=== PATIENT | male | born 1975 | race Caucasian/White ===

== ENCOUNTER 2020-01-13 14:21 | Observation (INO) | payer OTHER ==
--- NOTE | 2020-01-13 15:25 | PDOC ---
History of Present Illness - General Chief Complaint: Pain Stated Complaint: ABD PAIN Time Seen by Provider: 01/13/20 15:16 History Source: Patient Exam Limitations: No Limitations Past History - Travel History Traveled outside of the country in the last 30 days: No Close contact w/someone who was outside of country & ill: No - Medical History Allergies/Adverse Reactions: Allergies Allergy/AdvReac Type Severity Reaction Status Date / Time No Known Allergies Allergy Verified 12/31/14 17:47 Home Medications: Ambulatory Orders Ibuprofen [Motrin -] 600 mg PO QID PRN #20 tablet 12/31/14 - Psycho-Social/Smoking History Smoking History: Never smoked - Substance Abuse Hx (Audit-C & DAST Scrn) How often the patient has a drink containing alcohol: Never Score: In Men: 4 or > Positive; In Women: 3 or > Positive: 0 Screen Result (Pos requires Nsg. Audit-10AR): Negative Review of Systems - Review of Systems Able to Perform ROS?: Yes Comments:: 01/13/20 21:10 CONSTITUTIONAL: Absent: fever, chills, diaphoresis, generalized weakness, malaise, loss of appetite HEENT: Absent: rhinorrhea, nasal congestion, throat pain, throat swelling, difficulty swallowing, mouth swelling, ear pain, eye pain, visual Changes CARDIOVASCULAR: Absent: chest pain, loss of consciousness, palpitations, irregular heart rate, peripheral edema RESPIRATORY: Absent: cough, shortness of breath, dyspnea with exertion, orthopnea, wheezing, stridor, hemoptysis GASTROINTESTINAL: Present: Abdominal pain, nausea Absent: abdominal distension, vomiting, diarrhea, constipation, melena, hematochezia GENITOURINARY: Absent: dysuria, frequency, urgency, hesitancy, hematuria, flank pain, genital pain MUSCULOSKELETAL: Absent: myalgia, arthralgia, joint swelling SKIN: Absent: rash, itching, pallor HEMATOLOGIC/IMMUNOLOGIC: Absent: easy bleeding, easy bruising, lymphadenopathy, frequent infections ENDOCRINE: Absent: unexplained weight gain, unexplained weight loss, heat intolerance, cold intolerance NEUROLOGIC: Absent: headache, focal weakness or paresthesias, dizziness, unsteady gait, seizure, mental status changes, bladder or bowel incontinence PSYCHIATRIC: Absent: anxiety, depression, suicidal or homicidal ideation, hallucinations. Is the patient limited Lao proficient: No *Physical Exam - Vital Signs Last Vital Signs Temp Pulse Resp BP Pulse Ox 98.2 F 85 20 114/72 100 01/13/20 14:37 01/13/20 14:37 01/13/20 14:37 01/13/20 14:37 01/13/20 14:37 - Physical Exam 01/13/20 21:10 GENERAL: Well developed, well nourished. Awake and alert. No acute distress. HEENT: Normocephalic, atraumatic. PERRLA, EOMI. No conjunctival pallor. Sclera are non- icteric. Moist mucous membranes. Oropharynx is clear. NECK: Supple. Full ROM. No JVD. Carotid pulses 2+ and symmetric, without bruits. No thyromegaly. No lymphadenopathy. CARDIOVASCULAR: Regular rate and rhythm. No murmurs, rubs, or gallops. Distal pulses are 2+ and symmetric. PULMONARY: No evidence of respiratory distress. Lungs clear to auscultation bilaterally. No wheezing, rales or rhonchi. ABDOMINAL: Tenderness palpation of the right lower quadrant. Positive Rovsing sign. Soft. Non-distended. No rebound or guarding. No organomegaly. Normoactive bowel sounds. MUSCULOSKELETAL Normal range of motion at all joints. No bony deformities or tenderness. No CVA tenderness. EXTREMITIES: No cyanosis. No clubbing. No edema. No calf tenderness. SKIN: Warm and dry. Normal capillary refill. No rashes. No jaundice. NEUROLOGICAL: Alert, awake, appropriate. Cranial nerves 2-12 intact. No deficits to light touch and temperature in face, upper extremities and lower extremities. No motor deficits in the in face, upper extremities and lower extremities. Normoreflexic in the upper and lower extremities. Normal speech. Toes are down-going bilaterally. Gait is normal without ataxia. PSYCHIATRIC: Cooperative. Good eye contact. Appropriate mood and affect. ED Treatment Course - LABORATORY CBC & Chemistry Diagram: 01/13/20 16:30 01/13/20 16:30 Medical Decision Making - Medical Decision Making 01/13/20 21:11 Patient is a 44-year-old male no past medical history who presents to the ER for 2 days of right lower quadrant pain. He states that he tried eating toast last night however he had a lot of pain in his abdomen so he stopped eating. He also notes he felt like he had gas. He states that the pain is mostly in his right lower quadrant. He denies vomiting, diarrhea, constipation, urinary issues, chest pain, shortness of breath and difficulty breathing. Denies any past surgical history. A/P: Appendicitis On exam patient has exquisite right lower quadrant tenderness with positive Rovsing sign. Labs show leukocytosis to 22 with a left shift. Preop labs drawn, blood culture sent. CT as per imaging on-call shows acute appendicitis. Consulted with Dr. Ramos. States he will see the patient in the morning. Admit to medicine. Discharge - Discharge Information Problems reviewed: Yes Clinical Impression/Diagnosis: Appendicitis Qualifiers: Appendicitis type: acute appendicitis Acute appendicitis type: with localized peritonitis Appendicitis gangrene presence: unspecified whether gangrene present Appendicitis perforation presence: without perforation Appendicitis abscess presence: without abscess Qualified Code(s): K35.30 - Acute appendicitis with localized peritonitis, without perforation or gangrene Condition: Stable - Admission Yes - Follow up/Referral Referrals: Manjula Mcgee [Primary Care Provider] - - Patient Discharge Instructions - Post Discharge Activity
[2020-01-13] MEDS ORDERED: SODIUM CHLORIDE 1,000 ML IV STA ×2 (15:35→18:14)
[2020-01-13 17:03] LABS: PH,URINE 7.5 (5.0-8.0); URINE APPEARANCE CLEAR; URINE BILIRUBIN NEGATIVE (NEGATIVE); URINE COLOR YELLOW; URINE GLUCOSE (UA) NEGATIVE (NEGATIVE); URINE KETONE NEGATIVE (NEGATIVE); URINE LEUK ESTERASE NEGATIVE (NEGATIVE); URINE NITRITE NEGATIVE (NEGATIVE); URINE PROTEIN NEGATIVE (NEGATIVE); URINE UROBILINOGEN 0.2 mg/dL (0.2-1.0)
[2020-01-13 17:07] LABS: INR 1.07 (0.83-1.09); PROTHROMBIN TIME (PATIENT) 12.6 SEC (9.7-13.0)
[2020-01-13 17:23] LABS: BASO % 0.2 % (0-2.0); HEMATOCRIT 47.8 % (35.4-49); HEMOGLOBIN 15.9 GM/dL (11.7-16.9); LYMPH % 8.3 % (8-40); MCHC 33.3 g/dl (32.0-35.9); MEAN CELL VOLUME 87.1 fl (80-96); MEAN PLT VOLUME 9.3 fl (7.5-11.1); MONO % 6.8 % (3.8-10.2); NEUT % 84.7 % (42.8-82.8); PLATELET COUNT 249 K/MM3 (134-434); RBC 5.49 M/mm3 (4.00-5.60); RDW 13.9 % (11.9-15.9); WHITE BLOOD COUNT 22.5 K/mm3 (4.0-10.0)
[2020-01-13 17:46] LABS: ALBUMIN 3.7 g/dl (3.4-5.0); BILIRUBIN,TOTAL 1.9 mg/dL (0.2-1); BLOOD UREA NITROGEN 10.6 mg/dL (7-18); CALCIUM 8.6 mg/dL (8.5-10.1); CREATININE 1.1 mg/dL (0.55-1.3); POTASSIUM 3.9 mmol/L (3.5-5.1)
[2020-01-13 17:52] LABS: PLATELET ESTIMATE ADEQUATE
[2020-01-13] MEDS ORDERED: PIPERACILLIN/TAZOB 3.375 GM 3.375 GM in DEXTROSE 5%-WATER - 50 ML IVPB ONE (20:41)
[2020-01-13] MEDS ORDERED: PIPERACILLIN/TAZOB 3.375 GM 3.375 GM/50 ML BAG IVPB ONE (20:48)
[2020-01-13] MEDS ORDERED: ACETAMINOPHEN 325 MG TABLET (FP) PO PRN (21:28)
--- NOTE | 2020-01-13 21:31 | HP ---
CHIEF COMPLAINT: abdominal pain PCP: HISTORY OF PRESENT ILLNESS: Patient is a 44 y/o male with no past medical history who presents with two days of abdominal pain. States that it has been worsening. No acute onset. Denies nausea, vomiting, diarrhea, fever. Only endorses pain. Does not take any medications. No past hx of surgery. Talked to patient using Ukranian chief financial officer. ER course was notable for: (1) acute appendicitis (2) (3) Recent Travel: denies PAST MEDICAL HISTORY: none PAST SURGICAL HISTORY: none Social History: Smoking: quit " years ago" Alcohol: occasional Drugs: denies Allergies No Known Allergies Allergy (Verified 12/31/14 17:47) HOME MEDICATIONS: Home Medications Medication Instructions Recorded Ibuprofen [Motrin -] 600 mg PO QID PRN #20 tablet 12/31/14 REVIEW OF SYSTEMS CONSTITUTIONAL: Absent: fever, chills, diaphoresis, generalized weakness, malaise, loss of appetite, weight change HEENT: Absent: rhinorrhea, nasal congestion, throat pain, throat swelling, difficulty swallowing, mouth swelling, ear pain, eye pain, visual changes CARDIOVASCULAR: Absent: chest pain, syncope, palpitations, irregular heart rate, lightheadedness, peripheral edema RESPIRATORY: Absent: cough, shortness of breath, dyspnea with exertion, orthopnea, wheezing, stridor, hemoptysis GASTROINTESTINAL: abdominal pain, Absent: abdominal distension, nausea, vomiting, diarrhea, constipation, melena, hematochezia GENITOURINARY: Absent: dysuria, frequency, urgency, hesitancy, hematuria, flank pain, genital pain MUSCULOSKELETAL: Absent: myalgia, arthralgia, joint swelling, back pain, neck pain SKIN: Absent: rash, itching, pallor HEMATOLOGIC/IMMUNOLOGIC: Absent: easy bleeding, easy bruising, lymphadenopathy, frequent infections ENDOCRINE: Absent: unexplained weight gain, unexplained weight loss, heat intolerance, cold intolerance NEUROLOGIC: Absent: headache, focal weakness or paresthesias, dizziness, unsteady gait, seizure, mental status changes, bladder or bowel incontinence PSYCHIATRIC: Absent: anxiety, depression, suicidal or homicidal ideation, hallucinations. PHYSICAL EXAMINATION Vital Signs - 24 hr 01/13/20 01/13/20 14:37 18:46 Temperature 98.2 F Pulse Rate 85 Respiratory 20 Rate Blood Pressure 114/72 O2 Sat by Pulse 100 99 Oximetry (%) GENERAL: Awake, alert, and fully oriented, in no acute distress. HEAD: Normal with no signs of trauma. EYES: Pupils equal, round and reactive to light, extraocular movements intact EARS, NOSE, THROAT: Moist mucous membranes. NECK: Normal range of motion, supple without lymphadenopathy, JVD, or masses. LUNGS: Breath sounds equal, clear to auscultation bilaterally. No wheezes, and no crackles. No accessory muscle use. HEART: Regular rate and rhythm, normal S1 and S2 without murmur, rub or gallop. ABDOMEN: hypoactive bowel sounds, mild guarding to right quadrant deep palpation MUSCULOSKELETAL: Normal range of motion LOWER EXTREMITIES:No peripheral edema. SKIN: Warm, dry, normal turgor, no rashes or lesions noted, normal capillary refill. Laboratory Results - last 24 hr 01/13/20 01/13/20 01/13/20 16:30 16:30 16:30 WBC 22.5 H RBC 5.49 Hgb 15.9 Hct 47.8 MCV 87.1 MCH 29.0 MCHC 33.3 RDW 13.9 Plt Count 249 MPV 9.3 Absolute Neuts (auto) 19.1 H Neutrophils % 84.7 H D Neutrophils % (Manual) 84.0 H Band Neutrophils % 2.0 Lymphocytes % 8.3 D Lymphocytes % (Manual) 10.0 Monocytes % 6.8 Monocytes % (Manual) 4 Eosinophils % 0.0 D Basophils % 0.2 Nucleated RBC % 1 H Platelet Estimate Adequate PT with INR 12.60 INR 1.07 Sodium Potassium Chloride Carbon Dioxide Anion Gap BUN Creatinine Est GFR (CKD-EPI)AfAm Est GFR (CKD-EPI)NonAf Random Glucose Calcium Total Bilirubin AST ALT Alkaline Phosphatase Total Protein Albumin Urine Color Yellow Urine Appearance Clear Urine pH 7.5 Ur Specific [place] 1.008 L Urine Protein Negative Urine Glucose (UA) Negative Urine Ketones Negative Urine Blood Negative Urine Nitrite Negative Urine Bilirubin Negative Urine Urobilinogen 0.2 Ur Leukocyte Esterase Negative 01/13/20 16:30 WBC RBC Hgb Hct MCV MCH MCHC RDW Plt Count MPV Absolute Neuts (auto) Neutrophils % Neutrophils % (Manual) Band Neutrophils % Lymphocytes % Lymphocytes % (Manual) Monocytes % Monocytes % (Manual) Eosinophils % Basophils % Nucleated RBC % Platelet Estimate PT with INR INR Sodium 137 Potassium 3.9 Chloride 101 Carbon Dioxide 29 Anion Gap 7 L BUN 10.6 Creatinine 1.1 Est GFR (CKD-EPI)AfAm 94.79 Est GFR (CKD-EPI)NonAf 81.78 Random Glucose 103 Calcium 8.6 Total Bilirubin 1.9 H AST 20 ALT 38 Alkaline Phosphatase 90 Total Protein 7.0 Albumin 3.7 Urine Color Urine Appearance Urine pH Ur Specific [place] Urine Protein Urine Glucose (UA) Urine Ketones Urine Blood Urine Nitrite Urine Bilirubin Urine Urobilinogen Ur Leukocyte Esterase ASSESSMENT/PLAN: Patient is a 44 y/o male with no past medical history who is admitted for acute appendicitis. #Acute Appendicitis - visualized on CT, with leukocytosis and left shift - ED spoke with Dr. ceron who will operate in AM - Zosyn pre op - NPO, SCD's - acetaminophen for pain control, can scale up if pain uncontrolled, patient currently tolerating pain well - f/u morning EKG, not done in ED #DVT ppx - SCD's FEN - NPO for surgery - maintenance fluids dispo: monitor on med surg Family Medical History Family History: As Documented Visit type - Emergency Visit Emergency Visit: No - New Patient This patient is new to me today: Yes Date on this admission: 01/14/20 - Critical Care Critical Care patient: No ATTENDING PHYSICIAN STATEMENT I saw and evaluated the patient. I reviewed the resident's note and discussed the case with the resident. I agree with the resident's findings and plan as documented. SUBJECTIVE: OBJECTIVE: ASSESSMENT AND PLAN:
--- NOTE | 2020-01-13 21:37 | PN ---
Teaching Attending Note Name of Resident: Quita Villagomez ATTENDING PHYSICIAN STATEMENT I saw and evaluated the patient. I reviewed the resident's note and discussed the case with the resident. I agree with the resident's findings and plan as documented. SUBJECTIVE: Patient is a 44-year-old man with no reported PMH who presents to the ER for 2 d ays of right lower quadrant pain. He states that he tried eating toast last night however he had a lot of pain in his abdomen so he stopped eating. He also notes he felt like he had gas. He states that the pain is mostly in his right lower quadrant. He denies vomiting, diarrhea, constipation, urinary issues, chest pain, shortness of breath and difficulty breathing. Denies any past surgical history. Patient denies chest pain, shortness of breath, fever, chills, dysuria, frequency, urgency, melena, hematochezia or hematuria. Denies alcohol, tobacco or illicit drug use. No sick contacts or recent travels. Family history is unremarkable. OBJECTIVE: Alert Vital Signs Period Temp Pulse Resp BP Sys/Gates Pulse Ox Last 24 Hr 98.2 F 85 20 114/72 99-100 HEENT: No Jaundice, eye redness or discharge, PERRLA, EOMI. Normocephalic, atraumatic. External ears are normal and hearing is grossly intact. No nasal discharge. Neck: Supple, nontender. No palpable adenopathy or thyromegaly. No JVD Chest: Good effort. Clear to auscultation and percussion. Heart: Regular. No S3, rub or murmur Abdomen: Not distended, soft, RLQ tenderness and no HSM. No rebound or guarding. Normal bowel sounds. Ext: Peripheral pulses intact. No leg edema. Skin: Warm and dry. No petechiae, rash or ecchymosis. Neuro: Alert. Oriented x3. CN 2-12 grossly intact. Sensation grossly intact in all four extremities and DTR are symmetric. Psych: Appropriate mood and affect. Good insight. Home Medications Medication Instructions Recorded Ibuprofen [Motrin -] 600 mg PO QID PRN #20 tablet 12/31/14 Abnormal Lab Results 01/13/20 01/13/20 01/13/20 16:30 16:30 16:30 WBC 22.5 H Absolute Neuts (auto) 19.1 H Neutrophils % 84.7 H D Neutrophils % (Manual) 84.0 H Nucleated RBC % 1 H Anion Gap 7 L Total Bilirubin 1.9 H Ur Specific [place] 1.008 L Current Medications Generic Name Dose Route Start Last Admin Trade Name Freisaias PRN Reason Stop Dose Admin Acetaminophen 650 mg 01/13/20 21:28 Tylenol - PO Q4H PRN PAIN LEVEL 6-10 Sodium Chloride 1,000 mls @ 100 mls/hr 01/13/20 21:30 01/13/20 21:45 Normal Saline - IV 100 mls/hr ASDIR JAN Administration ASSESSMENT AND PLAN: 1. Appendicitis - CT abdomen/pelvis shows evidence of appendicitis. CXR and EKG pending. ER staff prescribed IV Zosyn and IV NS for the patient. Will keep him NPO. ER consulted Surgery. Elevated bilirubin unexplained - will trend and do further workup if is fails to resolve. Viral testing for COVID-19 ordered and patient placed on airborne, droplet and contact isolation. 2. DVT prophylaxis - SCD 3. Advance directives - Full code
[2020-01-13] MEDS: SODIUM CHLORIDE 1,000 ML IV SCH ×2 (21:45→23:25)
[2020-01-14] VITALS: BMI 28.7
[2020-01-14] MEDS ORDERED: DEXTROSE 5%-WATER - 50 ML IVPB ONE (04:54)
[2020-01-14] MEDS ORDERED: PIPERACILLIN/TAZOBACTAM 3.375 GM VIAL IVPB ONE (04:54)
[2020-01-14] MEDS ORDERED: PIPERACILLIN/TAZOB 3.375 GM 3.375 GM in DEXTROSE 5%-WATER - 50 ML IVPB SCH (05:00)
[2020-01-14 06:58] LABS: BASO % 0.4 % (0-2.0); EOS % 0.2 % (0-4.5); HEMATOCRIT 40.5 % (35.4-49); HEMOGLOBIN 13.7 GM/dL (11.7-16.9); LYMPH % 13.6 % (8-40); MCH 29.2 pg (25.7-33.7); MCHC 33.9 g/dl (32.0-35.9); MEAN CELL VOLUME 86.1 fl (80-96); MONO % 7.6 % (3.8-10.2); NEUT % 78.2 % (42.8-82.8); PLATELET COUNT 202 K/MM3 (134-434); RDW 14.3 % (11.9-15.9); WHITE BLOOD COUNT 13.6 K/mm3 (4.0-10.0)
[2020-01-14 07:05] LABS: INR 1.16 (0.83-1.09); PROTHROMBIN TIME (PATIENT) 13.7 SEC (9.7-13.0)
[2020-01-14 07:25] LABS: ALBUMIN 2.9 g/dl (3.4-5.0); BILIRUBIN,TOTAL 2.4 mg/dL (0.2-1); BLOOD UREA NITROGEN 8.6 mg/dL (7-18); CALCIUM 8.2 mg/dL (8.5-10.1); CREATININE 1.2 mg/dL (0.55-1.3); PHOSPHOROUS 2.3 mg/dL (2.5-4.9); POTASSIUM 4.1 mmol/L (3.5-5.1); TOT PROT 5.6 g/dl (6.4-8.2)
--- NOTE | 2020-01-14 08:51 | CONSULT ---
- Consultation REQUESTING PROVIDER: Sharri TRINIDAD CONSULT REQUEST: We have been asked to surgically evaluate this patient for acute appendicitis. PCP:Pascual Luong MD HISTORY OF PRESENT ILLNESS: LISY who is a 44 y/o Ukranian male who presented w/ abdominal pain; w/u has revealed acute appendicitis; he had generalized nonspecific abdominal pain which localized to the RLQ and became sharp; worse w/moving and better by lying still; pain is constant and w/ radiation; he has no other GI/ c/o; he had nausea w/o vomiting; he states he could not tolerate any PO; he never had this before. PMHx: none PSHx: none Home Medications Medication Instructions Recorded Ibuprofen [Motrin -] 600 mg PO QID PRN #20 tablet 12/31/14 Allergies Allergy/AdvReac Type Severity Reaction Status Date / Time No Known Allergies Allergy Verified 12/31/14 17:47 REVIEW OF SYSTEMS: CONSTITUTIONAL: Absent: fever, chills, diaphoresis, generalized weakness, malaise, loss of appetite, weight change CARDIOVASCULAR: Absent: chest pain, syncope, palpitations, irregular heart rate, lightheadedness, peripheral edema RESPIRATORY: Absent: cough, shortness of breath, dyspnea with exertion, wheezing, stridor, hemoptysis GASTROINTESTINAL: Absent: abdominal pain, abdominal distension, nausea, vomiting, diarrhea, constipation, melena, hematochezia GENITOURINARY: Absent: dysuria, frequency, urgency, hesitancy, hematuria, flank pain, genital pain MUSCULOSKELETAL: Absent: myalgia, arthralgia, joint swelling, back pain, neck pain SKIN: Absent: rash, itching, pallor HEMATOLOGIC/IMMUNOLOGIC: Absent: easy bleeding, easy bruising, lymphadenopathy NEUROLOGIC: Absent: headache, focal weakness, paresthesias, dizziness, unsteady gait, seizure, mental status changes, bladder or bowel incontinence PSYCHIATRIC: Absent: anxiety, depression, suicidal or homicidal ideation, hallucinations. PHYSICAL EXAM: GENERAL: Awake, alert, and fully oriented, in no acute distress. HEAD: Normal with no signs of trauma. EYES: PERRL, sclera anicteric, conjunctiva clear. NECK: Normal ROM, supple without lymphadenopathy, JVD, or masses. ABDOMEN: Soft, focal RLQ tenderness, not distended, normoactive bowel sounds,localized RLQ guarding with minimal rebound, no masses. No organomegaly. No hernias. Rovsings; psoas and obturator signs are present. MUSCULOSKELETAL: Normal ROM at all joints. No bony deformities or tenderness. No CVA tenderness. UPPER EXTREMITIES: 2+ pulses, warm, well-perfused. No cyanosis. Cap refill <2 seconds. No peripheral edema. LOWER EXTREMITIES: 2+ pulses, warm, well-perfused. No calf tenderness. No peripheral edema. NEUROLOGICAL: Normal speech, gait not observed. PSYCH: Cooperative. Good eye contact. Appropriate mood and affect. SKIN: Warm, dry, normal turgor, no rashes or lesions noted. Vital Signs Temperature 98.9 F 01/14/20 05:22 Pulse Rate 75 01/14/20 05:22 Respiratory Rate 18 01/14/20 05:22 Blood Pressure 107/68 01/14/20 05:22 O2 Sat by Pulse Oximetry (%) 98 01/14/20 05:24 Lab Results WBC 13.6 K/mm3 (4.0-10.0) H 01/14/20 06:20 RBC 4.70 M/mm3 (4.00-5.60) 01/14/20 06:20 Hgb 13.7 GM/dL (11.7-16.9) 01/14/20 06:20 Hct 40.5 % (35.4-49) D 01/14/20 06:20 MCV 86.1 fl (80-96) 01/14/20 06:20 MCHC 33.9 g/dl (32.0-35.9) 01/14/20 06:20 RDW 14.3 % (11.9-15.9) 01/14/20 06:20 Plt Count 202 K/MM3 (134-434) 01/14/20 06:20 INR 1.16 (0.83-1.09) H 01/14/20 06:20 Sodium 141 mmol/L (136-145) 01/14/20 06:20 Potassium 4.1 mmol/L (3.5-5.1) 01/14/20 06:20 Chloride 107 mmol/L (98-107) 01/14/20 06:20 Carbon Dioxide 29 mmol/L (21-32) 01/14/20 06:20 Anion Gap 5 MMOL/L (8-16) L 01/14/20 06:20 BUN 8.6 mg/dL (7-18) 01/14/20 06:20 Creatinine 1.2 mg/dL (0.55-1.3) 01/14/20 06:20 Random Glucose 109 mg/dL (74-106) H 01/14/20 06:20 Calcium 8.2 mg/dL (8.5-10.1) L 01/14/20 06:20 Blood Type O NEGATIVE 01/13/20 21:05 Antibody Screen Negative 01/13/20 21:05 CT scan a/p reviewed images and preliminary report. IMP: acute appendicitis PLAN: laparoscopic possible open appendectomy; r/b/t/a's d/w the patient via equestrian trainer phone ([facility]) and informed consent obtained; equestrian trainer details on the consent. Alberto Ramos MD FACS
[2020-01-14] MEDS ORDERED: PROPOFOL 20 ML ONE ×3 (08:54→10:54)
[2020-01-14] MEDS ORDERED: fentaNYL CITRATE 250 MCG/5 ML VIAL ONE (08:54)
[2020-01-14] MEDS ORDERED: MIDAZOLAM HCL 2 MG/2 ML SINGLE DOSE VIAL ONE (08:54)
[2020-01-14] MEDS ORDERED: NEOSTIGMINE METHYLSULFATE 0.5 MG/ML - 10 ML MDV ONE (08:56)
[2020-01-14] MEDS ORDERED: LIDOCAINE HCL/PF 2% SDV 5ML VIAL ONE (08:56)
[2020-01-14] MEDS ORDERED: GLYCOPYRROLATE 0.2 MG/1 ML VIAL ONE ×2 (08:56)
[2020-01-14] MEDS ORDERED: DEXAMETHASONE SOD PHOSPHATE 4 MG/1 ML VIAL ONE (08:56)
[2020-01-14] MEDS ORDERED: ONDANSETRON 4 MG/2 ML VIAL IVPUSH PRN ×2 (09:37→11:29)
[2020-01-14] MEDS ORDERED: BUPIVACAINE HCL/PF 0.5% (5MG/ML) 10 ML VIAL IJ ONE ×3 (10:36)
[2020-01-14] MEDS ORDERED: BUPIVACAINE HCL 50 ML ONE (10:40)
[2020-01-14] MEDS ORDERED: morphine SULFATE 4 MG/ML VIAL IVPUSH PRN (11:16)
--- NOTE | 2020-01-14 11:21 | OP ---
Operative Note - Note: Operative Date: 01/14/20 Pre-Operative Diagnosis: acute appendicitis Operation: laparoscopic appendectomy Findings: acute appendicitis w/ distal appendix adherent to terminal ileum. Post-Operative Diagnosis: Same as Pre-op Surgeon: Alberto Ramos Anesthesiologist/WATER TREATMENT PLANT SUPERVISOR: Stephanie Bhatti Anesthesia: General Specimens Removed: appendix Estimated Blood Loss (mls): 20 Drains & Tubes with Location: 10 mm MELISSA in the pelvis
[2020-01-14] MEDS: LACTATED RINGERS SOLUTION 1,000 ML/1,000 ML INFUS.BAG IV SCH (12:05)
[2020-01-14] MEDS: PIPERACILLIN/TAZOB 3.375 GM 3.375 GM in DEXTROSE 5%-WATER - 50 ML IVPB SCH (12:08)
[2020-01-14] MEDS: oxyCODONE HCL 5 MG TABLET PO PRN ×2 (14:20→23:15)
--- NOTE | 2020-01-14 14:23 | PN ---
Progress Note (short form) - Note Progress Note: SUBJECTIVE: Feeling well post-op OBJECTIVE: Afebrile, Hemodynamically stable. Last Vital Signs Temp Pulse Resp BP Pulse Ox 98.9 F 74 18 98/57 L 99 01/14/20 12:20 01/14/20 12:20 01/14/20 12:20 01/14/20 12:20 01/14/20 13:00 HEENT - Atraumatic, Normocephalic Heart - S1, S2, RRR Lungs - clear to auscultation Abdomen - Soft, mild lower quadrant tenderness, MELISSA drain in situ LLQ with serosanguinous material. Bowel sounds normal. Extremities - No edema, no calf tenderness Neuro - AAO x 3. Tone/Power normal. Laboratory Results - last 24 hr 01/13/20 01/13/20 01/13/20 16:30 16:30 16:30 WBC 22.5 H RBC 5.49 Hgb 15.9 Hct 47.8 MCV 87.1 MCH 29.0 MCHC 33.3 RDW 13.9 Plt Count 249 MPV 9.3 Absolute Neuts (auto) 19.1 H Neutrophils % 84.7 H D Neutrophils % (Manual) 84.0 H Band Neutrophils % 2.0 Lymphocytes % 8.3 D Lymphocytes % (Manual) 10.0 Monocytes % 6.8 Monocytes % (Manual) 4 Eosinophils % 0.0 D Basophils % 0.2 Nucleated RBC % 1 H Platelet Estimate Adequate PT with INR 12.60 INR 1.07 Sodium Potassium Chloride Carbon Dioxide Anion Gap BUN Creatinine Est GFR (CKD-EPI)AfAm Est GFR (CKD-EPI)NonAf Random Glucose Calcium Phosphorus Magnesium Total Bilirubin AST ALT Alkaline Phosphatase Total Protein Albumin Urine Color Yellow Urine Appearance Clear Urine pH 7.5 Ur Specific [place] 1.008 L Urine Protein Negative Urine Glucose (UA) Negative Urine Ketones Negative Urine Blood Negative Urine Nitrite Negative Urine Bilirubin Negative Urine Urobilinogen 0.2 Ur Leukocyte Esterase Negative Blood Type Antibody Screen 01/13/20 01/13/20 01/14/20 16:30 21:05 06:20 WBC 13.6 H RBC 4.70 Hgb 13.7 Hct 40.5 D MCV 86.1 MCH 29.2 MCHC 33.9 RDW 14.3 Plt Count 202 MPV 9.0 Absolute Neuts (auto) 10.6 H Neutrophils % 78.2 Neutrophils % (Manual) Band Neutrophils % Lymphocytes % 13.6 D Lymphocytes % (Manual) Monocytes % 7.6 Monocytes % (Manual) Eosinophils % 0.2 D Basophils % 0.4 Nucleated RBC % 0 Platelet Estimate PT with INR INR Sodium 137 Potassium 3.9 Chloride 101 Carbon Dioxide 29 Anion Gap 7 L BUN 10.6 Creatinine 1.1 Est GFR (CKD-EPI)AfAm 94.79 Est GFR (CKD-EPI)NonAf 81.78 Random Glucose 103 Calcium 8.6 Phosphorus Magnesium Total Bilirubin 1.9 H AST 20 ALT 38 Alkaline Phosphatase 90 Total Protein 7.0 Albumin 3.7 Urine Color Urine Appearance Urine pH Ur Specific [place] Urine Protein Urine Glucose (UA) Urine Ketones Urine Blood Urine Nitrite Urine Bilirubin Urine Urobilinogen Ur Leukocyte Esterase Blood Type O NEGATIVE Antibody Screen Negative 01/14/20 01/14/20 06:20 06:20 WBC RBC Hgb Hct MCV MCH MCHC RDW Plt Count MPV Absolute Neuts (auto) Neutrophils % Neutrophils % (Manual) Band Neutrophils % Lymphocytes % Lymphocytes % (Manual) Monocytes % Monocytes % (Manual) Eosinophils % Basophils % Nucleated RBC % Platelet Estimate PT with INR 13.70 H INR 1.16 H Sodium 141 Potassium 4.1 Chloride 107 Carbon Dioxide 29 Anion Gap 5 L BUN 8.6 Creatinine 1.2 Est GFR (CKD-EPI)AfAm 85.32 Est GFR (CKD-EPI)NonAf 73.62 Random Glucose 109 H Calcium 8.2 L Phosphorus 2.3 L Magnesium 2.0 Total Bilirubin 2.4 H AST 28 ALT 42 Alkaline Phosphatase 75 Total Protein 5.6 L Albumin 2.9 L Urine Color Urine Appearance Urine pH Ur Specific [place] Urine Protein Urine Glucose (UA) Urine Ketones Urine Blood Urine Nitrite Urine Bilirubin Urine Urobilinogen Ur Leukocyte Esterase Blood Type Antibody Screen Current Medications Generic Name Dose Route Start Last Admin Trade Name Freq PRN Reason Stop Dose Admin Lactated Ringer's 1,000 ml in 1,000 mls @ 100 mls/hr 01/14/20 11:15 01/14/20 12:05 Lactated Ringers Solution IV 0 mls ASDIR JAN Administration Morphine Sulfate 4 mg 01/14/20 11:16 Morphine Sulfate IVPUSH Q6H PRN PAIN LEVEL 7 - 10 Ondansetron HCl 4 mg 01/14/20 11:29 Zofran Injection IVPUSH Q6H PRN NAUSEA AND/OR VOMITING Oxycodone HCl 5 mg 01/14/20 11:15 Roxicodone - PO Q6H PRN PAIN LEVEL 4 - 6 Home Medications Medication Instructions Recorded Ibuprofen [Motrin -] 600 mg PO QID PRN #20 tablet 12/31/14 ASSESSMENT/PLAN: 44 year old male with no significant PMH presented with abdominal pain, found to have to have acute appendicits. CT A/P - Findings consistent with acute appendicitis, without abscess or collection 1. Acute Appendicitis Immediately s/p lap appendectomy - MELISSA drain in situ. IV Zosyn pre-op Leukocytosis resolving. Afebrile, Hemodynamically stable. Diet advancement and further management as per Surgery. 2. Hypophosphatemia - repleted. DVT Px - Heparin SQ Visit type - Emergency Visit Emergency Visit: Yes ED Registration Date: 01/13/20 Care time: The patient presented to the Emergency Department on the above date and was hospitalized for further evaluation of their emergent condition. - New Patient This patient is new to me today: No - Critical Care Critical Care patient: No - Discharge Referral Referred to [facility] Med [facility] No
[2020-01-14] MEDS ORDERED: PIPERACILLIN/TAZOB 4.5 GM 4.5 GM in DEXTROSE 5%-WATER 100 ML IVPB ONE (15:42)
[2020-01-14] MEDS ORDERED: PIPERACILLIN/TAZOBACTAM 4.5 GM VIAL IVPB ONE (16:46)
[2020-01-14] MEDS ORDERED: DEXTROSE 5%-WATER 100 ML IVPB ONE (16:46)
[2020-01-14] MEDS: HEPARIN NA (PORCINE) 5,000 UNITS/ML 1ML VIAL SQ SCH (21:25)
[2020-01-15] MEDS: HEPARIN NA (PORCINE) 5,000 UNITS/ML 1ML VIAL SQ SCH ×2 (05:27→13:30)
[2020-01-15 08:05] LABS: BASO % 0.4 % (0-2.0); EOS % 0.6 % (0-4.5); HEMATOCRIT 37.8 % (35.4-49); HEMOGLOBIN 12.8 GM/dL (11.7-16.9); LYMPH % 20.7 % (8-40); MCH 29.4 pg (25.7-33.7); MCHC 33.8 g/dl (32.0-35.9); MEAN CELL VOLUME 86.8 fl (80-96); MONO % 7.3 % (3.8-10.2); PLATELET COUNT 191 K/MM3 (134-434); RBC 4.35 M/mm3 (4.00-5.60); RDW 14.5 % (11.9-15.9); WHITE BLOOD COUNT 11.4 K/mm3 (4.0-10.0)
--- NOTE | 2020-01-15 08:18 | PN ---
Progress Note (short form) - Note Progress Note: General Surgery: PT without any nausea or emesis. No flatus or BM. Vital Signs Period Temp Pulse Resp BP Sys/Gates Pulse Ox Last 24 Hr 98.2 F-100.4 F 54-79 16-18 94-120/51-73 94-100 MELISSA:30 ml serosangrenous Gen: Alert, NAD ABD: soft, non-distended, inc tenderness. Inc c/d/i LE: no calf tenderness or swelling noted b/l. SCDs in place. CBC, BMP 01/15/20 07:30 01/14/20 06:20 A/P: 44 yo male s/p Lap appy, POD#1 Advance diet to regular Melissa removed today with the tip intact Stable for discharge if tolerating diet D/w Dr. Ramos, schedule f/u appt for next week
[2020-01-15] MEDS: LACTATED RINGERS SOLUTION 1,000 ML/1,000 ML INFUS.BAG IV SCH ×2 (10:13→12:31)
--- NOTE | 2020-01-15 10:13 | OP ---
DATE OF OPERATION: 01/14/2020 PREOPERATIVE DIAGNOSIS: Acute appendicitis. POSTOPERATIVE DIAGNOSIS: Acute appendicitis. PROCEDURE: Laparoscopic appendectomy. SURGEON: Alberto Ramos MD ANESTHESIA: General. OPERATIVE FINDINGS: There was acute appendicitis with the distal appendix adherent to the terminal ileum. The rest of the findings were unremarkable. PROCEDURE: The patient was placed on the operating room table in the supine position, and after induction of general anesthesia and placement of a Bowling catheter, the patient's abdomen was prepped with ChloraPrep and draped in sterile fashion. A timeout was taken, and pneumoperitoneum established at the umbilicus, using a Veress needle to an intraabdominal pressure of 15 mmHg. Next, a 12-mm suprapubic port just to the left of the midline was placed without incident, and then a left lower quadrant 5-mm port. The patient was placed in the head-down position and rotated to the left and laparoscopy carried out and previously noted findings were observed. The appendix was grasped and using blunt dissection and the LigaSure device mobilized from the lateral abdominal wall. The mesoappendix was serially divided using the LigaSure device as well. Once the base of the appendix was identified at the confluence of the 3 tenia on the cecum, a 60-mm Endo LUNA purple load stapler was placed across the base of the appendix and fired. The appendix was then placed in an EndoCatch and brought up to the abdominal wall at the 12-mm port site. The suture line was inspected for hemostasis and/or leak, and there was found to be none. The appendix was then removed with the 12-mm port, and sent the pathological examination. The 12-mm port was replaced and pneumoperitoneum reestablished, and hemostasis checked for and noted to be good. A 10-mm MELISSA drain was introduced through the left lower quadrant 5-mm port site and positioned in the right lower quadrant/pelvis and the 5-mm port removed and the drain secured to the skin with 2-0 silk suture and then the drain was connected to bulb self-suction. The remaining ports were removed under laparoscopic vision, and the pneumoperitoneum evacuated. The defect at the suprapubic port site was closed with a single [id number] 0 Vicryl suture, and the port sites were injected with 0.5% Marcaine. The skin edges were reapproximated with interrupted 4-0 Biosyn followed by Steri-Strips and Band-Aid dressings. The patient was then aroused from anesthesia and prior to this the Bowling catheter removed, and the patient transferred to post anesthesia care unit in stable condition awake and alert, estimated blood loss 20 mL, replacements crystalloid, drains one 10-mm Pepito-Gonzalez in the pelvis, specimen appendix to Pathology and purulent peritoneal fluid to microbiology. I, Alberto Ramos, was physically present in the operating room from the time the patient was placed on the operating room table until he was transferred to the postanesthesia care unit in my accompaniment. MD AGUEDA Cuevas/[id number] MTDD
[2020-01-15 12:45] LABS: BILIRUBIN,DIRECT 0.2 mg/dL (0.0-0.2)
[2020-01-15 13:03] LABS: BLOOD UREA NITROGEN 8.3 mg/dL (7-18); CALCIUM 8.2 mg/dL (8.5-10.1); CREATININE 1.1 mg/dL (0.55-1.3); POTASSIUM 4.2 mmol/L (3.5-5.1)
[2020-01-15 13:58] VITALS: BP 100/63; PULSE 74; TEMP 97.7
--- NOTE | 2020-01-15 14:04 | DS ---
Physical Exam: SUBJECTIVE: Patient seen and examined at bedside. Not passes gas or BM at time of the examination. Mild pain at surgical site. OBJECTIVE: Vital Signs Period Temp Pulse Resp BP Sys/Gates Pulse Ox Last 24 Hr 98.2 F-99.0 F 54-70 18-18 94-118/51-69 94-96 PHYSICAL EXAM GENERAL: Awake, alert, and fully oriented, in no acute distress. HEAD: Normal with no signs of trauma. EYES: Pupils equal, round and reactive to light, extraocular movements intact EARS, NOSE, THROAT: Moist mucous membranes. NECK: Normal range of motion, supple without lymphadenopathy, JVD, or masses. LUNGS: Breath sounds equal, clear to auscultation bilaterally. No wheezes, and no crackles. No accessory muscle use. HEART: Regular rate and rhythm, normal S1 and S2 without murmur, rub or gallop. ABDOMEN: Normal bowel sounds, Diffuse TTP of abdomen, MELISSA draining pink MUSCULOSKELETAL: Normal range of motion LOWER EXTREMITIES:No peripheral edema. SKIN: Warm, dry, normal turgor, no rashes or lesions noted, normal capillary refill. LABS Laboratory Results - last 24 hr 01/13/20 01/15/20 01/15/20 22:35 07:30 07:30 WBC 11.4 H RBC 4.35 Hgb 12.8 Hct 37.8 MCV 86.8 MCH 29.4 MCHC 33.8 RDW 14.5 Plt Count 191 MPV 9.0 Absolute Neuts (auto) 8.1 H Neutrophils % 71.0 Lymphocytes % 20.7 D Monocytes % 7.3 Eosinophils % 0.6 D Basophils % 0.4 Nucleated RBC % 0 Sodium 142 Potassium 4.2 Chloride 109 H Carbon Dioxide 26 Anion Gap 7 L BUN 8.3 Creatinine 1.1 Est GFR (CKD-EPI)AfAm 94.79 Est GFR (CKD-EPI)NonAf 81.78 Random Glucose 87 Calcium 8.2 L Phosphorus 3.0 Direct Bilirubin 0.2 COVID-19 (NUSRAT) Not detected HOSPITAL COURSE: Date of Admission:01/13/20 44 year old male with no significant PMH presented with abdominal pain, found to have to have acute appendicits. CT AP Findings consistent with acute appendicitis, without abscess or collection. Patient was taken to OR the next day for lap appendectomy. He tolerated the procedure, no post op acute complications. He was treated with IV Zosyn, pre-op. Leukocytosis is resolving. Patient is Afebrile, Hemodynamically stable at this time. Further recommendations per surgery. Patient was advised to and provided him with post operative instructions, as per surgery. Patient is clinically stable for discharge Patient is discharged with instructions for a follow up appointment within [address] Ramos, surgery Date of Discharge: 01/15/20 Minutes to complete discharge: 36 Discharge Summary Problems reviewed: Yes Reason For Visit: APPENDICITIS Current Active Problems Appendicitis (Acute) Condition: Stable - Instructions Diet, Activity, Other Instructions: Dr. Ramos Discharge Instructions Dear JIN GIL, Post Operative Instructions Physical activity Resume your normal everyday activity as tolerated no heavy lifting or exercise until seen by your surgeon. You may walk unlimited amounts of and climb stairs. You may resume driving the car when you feel safe and comfortable behind the wheel. Wound care If you have a bandage, leave it on, and keep dry for 48 - 72 hours. After that time discard the outer bandage. If there are tapes on the skin under the outer bandage, leave them in place. They will peel off in the next 7 to 10 days. Do Not peel them off. You may shower 2 days after surgery. If there are tapes present on the skin, they can get wet. Diet There are no dietary restrictions. Eat healthy, high-fiber foods. Drink 6 to 8 glasses of liquid each day. This will assist in keeping your bowels are regular. Pain management You may take Tylenol or acetaminophen or Ibuprofen (for example, Motrin, Advil etc.) Any pain prescription medication ordered should be taken as prescribed for moderate to severe pain. Call Dr. Ramos for any of the following: Severe pain not relieved by medication Fever of 101 or higher Excessive bleeding or drainage on dressing Inability to urinate Call the office at [phone] for a post operative appointment in 7 - 10 days. Please follow up with your primary care physician, Dr Mcgee within one week Referrals: Alberto Ramos MD [Staff Physician] - 1 Week Manjula Mcgee [Primary Care Provider] - 1 Week Disposition: HOME - Home Medications Comprehensive Discharge Medication List: Ambulatory Orders Ibuprofen [Motrin -] 600 mg PO QID PRN #20 tablet 12/31/14 This patient is new to me today: No Emergency Visit: Yes ED Registration Date: 01/13/20 Care time: The patient presented to the Emergency Department on the above date and was hospitalized for further evaluation of their emergent condition. Critical Care patient: No - Discharge Referral [facility]erred to [facility] No ATTENDING PHYSICIAN STATEMENT I saw and evaluated the patient. I reviewed the resident's note and discussed the case with the resident. I agree with the resident's findings and plan as documented. SUBJECTIVE: OBJECTIVE: ASSESSMENT AND PLAN:
--- NOTE | 2020-01-15 14:48 | PN ---
Teaching Attending Note Name of Resident: Norma Frausto ATTENDING PHYSICIAN STATEMENT I saw and evaluated the patient. I reviewed the resident's note and discussed the case with the resident. I agree with the resident's findings and plan as documented. SUBJECTIVE: Feeling well post-op. No fever/chills. OBJECTIVE: Afebrile, Hemodynamically stable. Last Vital Signs Temp Pulse Resp BP Pulse Ox 97.7 F 74 18 100/63 96 01/15/20 13:57 01/15/20 13:57 01/15/20 13:57 01/15/20 13:57 01/15/20 10:00 Heart - S1, S2, RRR Lungs - clear to auscultation Abdomen - Soft, mild lower quadrant tenderness, MELISSA drain in situ LLQ with serosanguinous material. Bowel sounds normal. Extremities - No edema, no calf tenderness Neuro - AAO x 3. Tone/Power normal. Laboratory Results - last 24 hr 01/13/20 01/15/20 01/15/20 22:35 07:30 07:30 WBC 11.4 H RBC 4.35 Hgb 12.8 Hct 37.8 MCV 86.8 MCH 29.4 MCHC 33.8 RDW 14.5 Plt Count 191 MPV 9.0 Absolute Neuts (auto) 8.1 H Neutrophils % 71.0 Lymphocytes % 20.7 D Monocytes % 7.3 Eosinophils % 0.6 D Basophils % 0.4 Nucleated RBC % 0 Sodium 142 Potassium 4.2 Chloride 109 H Carbon Dioxide 26 Anion Gap 7 L BUN 8.3 Creatinine 1.1 Est GFR (CKD-EPI)AfAm 94.79 Est GFR (CKD-EPI)NonAf 81.78 Random Glucose 87 Calcium 8.2 L Phosphorus 3.0 Direct Bilirubin 0.2 COVID-19 (NUSRAT) Not detected Current Medications Generic Name Dose Route Start Last Admin Trade Name Freq PRN Reason Stop Dose Admin Heparin Sodium (Porcine) 5,000 unit 01/14/20 22:00 01/15/20 13:30 Heparin - SQ 5,000 unit TID JAN Administration Lactated Ringer's 1,000 ml in 1,000 mls @ 100 mls/hr 01/14/20 11:15 01/15/20 12:31 Lactated Ringers Solution IV Not Given ASDIR JAN Morphine Sulfate 4 mg 01/14/20 11:16 Morphine Sulfate IVPUSH Q6H PRN PAIN LEVEL 7 - 10 Ondansetron HCl 4 mg 01/14/20 11:29 Zofran Injection IVPUSH Q6H PRN NAUSEA AND/OR VOMITING Oxycodone HCl 5 mg 01/14/20 11:15 01/14/20 23:15 Roxicodone - PO 5 mg Q6H PRN Administration PAIN LEVEL 4 - 6 SUBJECTIVE: Feeling well post-op OBJECTIVE: Afebrile, Hemodynamically stable. Last Vital Signs Temp Pulse Resp BP Pulse Ox 98.9 F 74 18 98/57 L 99 01/14/20 12:20 01/14/20 12:20 01/14/20 12:20 01/14/20 12:20 01/14/20 13:00 HEENT - Atraumatic, Normocephalic Heart - S1, S2, RRR Lungs - clear to auscultation Abdomen - Soft, mild lower quadrant tenderness, MELISSA drain in situ LLQ with serosanguinous material. Bowel sounds normal. Extremities - No edema, no calf tenderness Neuro - AAO x 3. Tone/Power normal. Laboratory Results - last 24 hr 01/13/20 01/13/20 01/13/20 16:30 16:30 16:30 WBC 22.5 H RBC 5.49 Hgb 15.9 Hct 47.8 MCV 87.1 MCH 29.0 MCHC 33.3 RDW 13.9 Plt Count 249 MPV 9.3 Absolute Neuts (auto) 19.1 H Neutrophils % 84.7 H D Neutrophils % (Manual) 84.0 H Band Neutrophils % 2.0 Lymphocytes % 8.3 D Lymphocytes % (Manual) 10.0 Monocytes % 6.8 Monocytes % (Manual) 4 Eosinophils % 0.0 D Basophils % 0.2 Nucleated RBC % 1 H Platelet Estimate Adequate PT with INR 12.60 INR 1.07 Sodium Potassium Chloride Carbon Dioxide Anion Gap BUN Creatinine Est GFR (CKD-EPI)AfAm Est GFR (CKD-EPI)NonAf Random Glucose Calcium Phosphorus Magnesium Total Bilirubin AST ALT Alkaline Phosphatase Total Protein Albumin Urine Color Yellow Urine Appearance Clear Urine pH 7.5 Ur Specific [place] 1.008 L Urine Protein Negative Urine Glucose (UA) Negative Urine Ketones Negative Urine Blood Negative Urine Nitrite Negative Urine Bilirubin Negative Urine Urobilinogen 0.2 Ur Leukocyte Esterase Negative Blood Type Antibody Screen 01/13/20 01/13/20 01/14/20 16:30 21:05 06:20 WBC 13.6 H RBC 4.70 Hgb 13.7 Hct 40.5 D MCV 86.1 MCH 29.2 MCHC 33.9 RDW 14.3 Plt Count 202 MPV 9.0 Absolute Neuts (auto) 10.6 H Neutrophils % 78.2 Neutrophils % (Manual) Band Neutrophils % Lymphocytes % 13.6 D Lymphocytes % (Manual) Monocytes % 7.6 Monocytes % (Manual) Eosinophils % 0.2 D Basophils % 0.4 Nucleated RBC % 0 Platelet Estimate PT with INR INR Sodium 137 Potassium 3.9 Chloride 101 Carbon Dioxide 29 Anion Gap 7 L BUN 10.6 Creatinine 1.1 Est GFR (CKD-EPI)AfAm 94.79 Est GFR (CKD-EPI)NonAf 81.78 Random Glucose 103 Calcium 8.6 Phosphorus Magnesium Total Bilirubin 1.9 H AST 20 ALT 38 Alkaline Phosphatase 90 Total Protein 7.0 Albumin 3.7 Urine Color Urine Appearance Urine pH Ur Specific [place] Urine Protein Urine Glucose (UA) Urine Ketones Urine Blood Urine Nitrite Urine Bilirubin Urine Urobilinogen Ur Leukocyte Esterase Blood Type O NEGATIVE Antibody Screen Negative 01/14/20 01/14/20 06:20 06:20 WBC RBC Hgb Hct MCV MCH MCHC RDW Plt Count MPV Absolute Neuts (auto) Neutrophils % Neutrophils % (Manual) Band Neutrophils % Lymphocytes % Lymphocytes % (Manual) Monocytes % Monocytes % (Manual) Eosinophils % Basophils % Nucleated RBC % Platelet Estimate PT with INR 13.70 H INR 1.16 H Sodium 141 Potassium 4.1 Chloride 107 Carbon Dioxide 29 Anion Gap 5 L BUN 8.6 Creatinine 1.2 Est GFR (CKD-EPI)AfAm 85.32 Est GFR (CKD-EPI)NonAf 73.62 Random Glucose 109 H Calcium 8.2 L Phosphorus 2.3 L Magnesium 2.0 Total Bilirubin 2.4 H AST 28 ALT 42 Alkaline Phosphatase 75 Total Protein 5.6 L Albumin 2.9 L Urine Color Urine Appearance Urine pH Ur Specific [place] Urine Protein Urine Glucose (UA) Urine Ketones Urine Blood Urine Nitrite Urine Bilirubin Urine Urobilinogen Ur Leukocyte Esterase Blood Type Antibody Screen Current Medications Generic Name Dose Route Start Last Admin Trade Name Freq PRN Reason Stop Dose Admin Lactated Ringer's 1,000 ml in 1,000 mls @ 100 mls/hr 01/14/20 11:15 01/14/20 12:05 Lactated Ringers Solution IV 0 mls ASDIR JAN Administration Morphine Sulfate 4 mg 01/14/20 11:16 Morphine Sulfate IVPUSH Q6H PRN PAIN LEVEL 7 - 10 Ondansetron HCl 4 mg 01/14/20 11:29 Zofran Injection IVPUSH Q6H PRN NAUSEA AND/OR VOMITING Oxycodone HCl 5 mg 01/14/20 11:15 Roxicodone - PO Q6H PRN PAIN LEVEL 4 - 6 ASSESSMENT/PLAN: 44 year old male with no significant PMH presented with abdominal pain, found to have to have acute appendicits. CT A/P - Findings consistent with acute appendicitis, without abscess or collection 1. Acute Appendicitis POD 1 s/p lap appendectomy - MELISSA drain in situ. IV Zosyn pre-op Leukocytosis resolving. Afebrile, Hemodynamically stable. MELISSA drain removed, diet advanced, surgically cleared for discharge. 2. Hypophosphatemia - repleted.
--- NOTE | 2020-01-16 14:26 | PATH ---
Surgical Pathology Report Patient Name: JIN GIL Med. Rec. #: [id number] /Age/Gender: 1975 (Age: 44) / M Account: [id number] Location: [facility] MED/SURG Taken: 01/14/2020 Received: 01/15/2020 Reported: 01/16/2020 Physicians: Alberto Ramos MD Specimen(s) Received APPENDIX Clinical History Acute appendicitis Final Diagnosis APPENDIX, APPENDECTOMY: ACUTE APPENDICITIS AND PERIAPPENDICITIS. Electronically Signed Benjamin Ceballos M.D. Gross Description Received in formalin labeled "appendix," are 6 cruz-brown portions of a markedly torn and disrupted appendix ranging from 0.7 x 0.5 x 0.4 cm to 2.5 x 0.7 x 0.5 cm. No definitive distal tip is identified. The outer surfaces are cruz-brown, hemorrhagic and display multifocal defects. Sectioning reveals a hemorrhagic lumen. The wall of the appendix averages 0.1 cm in thickness. Application Operations Engineer sections including a possible bisected distal tip are submitted in one cassette. 01/15/2020 [facility]01/15/2020
== END 2020-01-15 15:48 | disposition home or self-care (01) ==
LOC: JER 14:21 → INTOOBSV 21:25 → JERBED 21:25 → UNDOADMOB 21:25 → JERBED 21:28 → J7W 23:25
PROVIDERS: ADMIT Internal Medicine
PROC: 3E023GC Introduction of Other Therapeutic Substance into Muscle, Percutaneous Approach (ICD-10-PCS; principal; 2020-01-13)
PROC: 3E033NZ Introduction of Analgesics, Hypnotics, Sedatives into Peripheral Vein, Percutaneous Approach (ICD-10-PCS; 2020-01-13)
PROC: 3E033GC Introduction of Other Therapeutic Substance into Peripheral Vein, Percutaneous Approach (ICD-10-PCS; 2020-01-13)
PROC: 3E0337Z Introduction of Electrolytic and Water Balance Substance into Peripheral Vein, Percutaneous Approach (ICD-10-PCS; 2020-01-13)
PROC: 0DTJ4ZZ Resection of Appendix, Percutaneous Endoscopic Approach (ICD-10-PCS; 2020-01-13)
DX: K35.30 Acute appendicitis with localized peritonitis, without perforation or gangrene (principal); Z87.891 Personal history of nicotine dependence; Z29.9 Encounter for prophylactic measures, unspecified
CPT/HCPCS: 36415; 74177-TC; 80048; 80053; 81003; 82248; 83735; 84100; 85025; 85610; 86850; 86900; 86901; 87040; 87086; 88304-TC; 94760; 96361; 96365; 96367; 96372; 96375; 99285-25; G0378; J1644; Q9967; U0003